=== PATIENT | male | born 1960 | race Caucasian/White ===

== ENCOUNTER 2018-12-20 16:11 | Inpatient (IN) | payer OTHER ==
[~2018-12-20] VITALS: Ht 172.7 cm; Wt 79.9 kg
[2018-12-20 16:15] VITALS: Ht 172.7 cm; Wt 79.9 kg
[2018-12-20 16:51] LABS: BASOPHIL % 0.5 % (0-2); PLATELET COUNT 255 x10^3mcL (130-400); RED CELL DISTRIBUTION WIDTH 13.3 % (11.5-14.5)
[2018-12-20 16:56] LABS: CALCIUM 8.9 mg/dL (8.5-10.1); CARBON DIOXIDE 26.9 mmol/L (21-32); CHLORIDE SERUM 101 mmol/L (98-107); CREATININE SERUM 0.9 mg/dL (0.7-1.3); GFR1 > 60 mL/min; GLUCOSE SERUM 141 mg/dL (74-106); POTASSIUM SERUM 4.1 mmol/L (3.5-5.1); SODIUM SERUM 139 mmol/L (136-145)
[2018-12-20 17:01] LABS: ALBUMIN 4.2 g/dL (3.4-5.0); ALKALINE PHOSPHATASE 100 U/L (46-116); ALT/SGPT 31 U/L (16-63); AST/SGOT 20 U/L (15-37); BILIRUBIN TOTAL 0.4 mg/dL (0.20-1.00); TOTAL PROTEIN, SERUM 7.9 g/dL (6.4-8.2)
[2018-12-20] MEDS ORDERED: ALBUTEROL0.63 MG/3 NEB (17:50)
[2018-12-20 18:49] VITALS: BP 167/93
[2018-12-20 21:14] VITALS: BP 140/75
[2018-12-20 21:19] VITALS: BP 140/75
[2018-12-21 05:05] VITALS: BP 121/66
[2018-12-21 06:36] LABS: PLATELET COUNT 258 x10^3mcL (130-400); RED CELL DISTRIBUTION WIDTH 12.9 % (11.5-14.5)
[2018-12-21 06:38] LABS: BASOPHIL % 0 % (0-2)
[2018-12-21 07:07] LABS: CALCIUM 9.6 mg/dL (8.5-10.1); CARBON DIOXIDE 24.8 mmol/L (21-32); CHLORIDE SERUM 103 mmol/L (98-107); CREATININE SERUM 0.8 mg/dL (0.7-1.3); GFR1 > 60 mL/min; GLUCOSE SERUM 152 mg/dL (74-106); SODIUM SERUM 137 mmol/L (136-145)
[2018-12-21 10:06] VITALS: BP 129/70
[2018-12-21 18:02] VITALS: BP 124/66
[2018-12-21 21:20] VITALS: BP 133/60
[2018-12-22 05:00] VITALS: BP 130/70
[2018-12-22 09:46] VITALS: BP 146/73
[2018-12-22 13:28] VITALS: BP 140/66
[2018-12-22 17:31] VITALS: BP 120/48
[2018-12-22 20:56] VITALS: BP 115/64
[2018-12-23 06:09] VITALS: BP 128/64
[2018-12-23 07:07] LABS: CALCIUM 8.9 mg/dL (8.5-10.1); CARBON DIOXIDE 29.4 mmol/L (21-32); CHLORIDE SERUM 104 mmol/L (98-107); CREATININE SERUM 0.8 mg/dL (0.7-1.3); GFR1 > 60 mL/min; GLUCOSE SERUM 128 mg/dL (74-106); POTASSIUM SERUM 4.3 mmol/L (3.5-5.1); SODIUM SERUM 141 mmol/L (136-145)
[2018-12-23 07:08] LABS: PLATELET COUNT 242 x10^3mcL (130-400); RED CELL DISTRIBUTION WIDTH 13.4 % (11.5-14.5)
[2018-12-23 07:34] VITALS: BP 132/73
[2018-12-23 10:33] VITALS: BP 132/73
[2018-12-23 10:43] LABS: BAND NEUTROPHIL 5 % (0-10); BASOPHIL 0 % (0-2); MONOCYTE 3 % (0-7); SEGMENTED NEUTROPHILS 87 % (37-75)
[2018-12-23 12:10] VITALS: BP 148/88
[2018-12-23 12:54] VITALS: BP 132/73
== END 2018-12-23 15:23 | disposition home or self-care (01) | DRG 140 ==
LOC: ED 16:11 → MU 17:23 → DU 20:51
PROVIDERS: Internal Medicine; ADMIT Internal Medicine
DX: J44.0 Chronic obstructive pulmonary disease with (acute) lower respiratory infection (principal); J96.01 Acute respiratory failure with hypoxia; J20.9 Acute bronchitis, unspecified; J45.901 Unspecified asthma with (acute) exacerbation; I25.10 Atherosclerotic heart disease of native coronary artery without angina pectoris; E66.9 Obesity, unspecified; I25.2 Old myocardial infarction; Z68.25 Body mass index [BMI] 25.0-25.9, adult
CPT/HCPCS: 36600; 83880; 94150; J1644; J1956; J2543; J2920; J2930; J3370; J7030; J7040; J7613; J7620; J7626; Q0092

== ENCOUNTER 2019-03-21 12:56 | Emergency (ER) | payer OTHER ==
[~2019-03-21] VITALS: Ht 167.6 cm; Wt 73.0 kg
[~2019-03-21 12:56] MED LIST: ALBUTEROL0.63 MG/3 NEB
[2019-03-21 13:04] VITALS: Ht 167.6 cm; Wt 73.0 kg
[2019-03-21 14:39] LABS: BASOPHIL % 0.5 % (0-2); PLATELET COUNT 252 x10^3mcL (130-400); RED CELL DISTRIBUTION WIDTH 13.4 % (11.5-14.5)
[2019-03-21 14:43] LABS: CARBON DIOXIDE 29.5 mmol/L (21-32); CHLORIDE SERUM 105 mmol/L (98-107); CREATININE SERUM 0.8 mg/dL (0.7-1.3); GFR1 > 60 mL/min; GLUCOSE SERUM 94 mg/dL (74-106); POTASSIUM SERUM 4.4 mmol/L (3.5-5.1); SODIUM SERUM 142 mmol/L (136-145)
[2019-03-21 14:48] LABS: ALBUMIN 3.8 g/dL (3.4-5.0); ALKALINE PHOSPHATASE 107 U/L (46-116); ALT/SGPT 25 U/L (16-63); AST/SGOT 15 U/L (15-37); BILIRUBIN TOTAL 0.3 mg/dL (0.20-1.00); HDL CHOLESTEROL 45 mg/dL (40-60); LIPASE 160 IU/L (73-393); TOTAL PROTEIN, SERUM 7.5 g/dL (6.4-8.2)
[2019-03-21 14:49] LABS: CHOLESTEROL 215 mg/dL (<200)
[2019-03-21 15:13] LABS: microscopic required? NO
[2019-03-21 15:30] LABS: UA SPECIFIC GRAVITY 1.025 (1.005-1.035); urine erythrocyte NEGATIVE (NEGATIVE)
[2019-03-21 15:37] LABS: AMPHETAMINE QUAL UR NONE DETECTED (See below)
[2019-03-21 16:23] VITALS: BP 126/72
== END 2019-03-21 16:23 | disposition home or self-care (01) ==
LOC: ED 12:56
PROVIDERS: Emergency Medicine
DX: J45.901 Unspecified asthma with (acute) exacerbation (principal)
CPT/HCPCS: 36415; 82962; 83880; J2930; J7613; J7644

== ENCOUNTER 2019-05-04 11:02 | Emergency (ER) | payer OTHER ==
[~2019-05-04] VITALS: Ht 167.6 cm; Wt 73.5 kg
[2019-05-04 11:07] VITALS: Ht 167.6 cm; Wt 73.5 kg
[2019-05-04 12:08] VITALS: BP 135/82
== END 2019-05-04 12:09 | disposition home or self-care (01) ==
LOC: ED 11:02
DX: J45.909 Unspecified asthma, uncomplicated (principal); R03.0 Elevated blood-pressure reading, without diagnosis of hypertension
CPT/HCPCS: J7512

== ENCOUNTER 2019-05-17 11:28 | Emergency (ER) | payer OTHER ==
[~2019-05-17] VITALS: Ht 167.6 cm; Wt 71.7 kg
[2019-05-17 11:55] VITALS: Ht 167.6 cm; Wt 71.7 kg
[2019-05-17 14:34] VITALS: BP 128/86
== END 2019-05-17 14:34 | disposition home or self-care (01) ==
LOC: ED 11:28
DX: S46.811A Strain of other muscles, fascia and tendons at shoulder and upper arm level, right arm, initial encounter (principal); M75.21 Bicipital tendinitis, right shoulder; J45.909 Unspecified asthma, uncomplicated; I25.2 Old myocardial infarction; X58.XXXA Exposure to other specified factors, initial encounter; Y93.89 Activity, other specified; Y92.89 Other specified places as the place of occurrence of the external cause; Y99.8 Other external cause status

== ENCOUNTER 2019-06-06 09:18 | Emergency (ER) | payer OTHER ==
[~2019-06-06] VITALS: Ht 167.6 cm; Wt 72.1 kg
[2019-06-06 09:20] VITALS: Ht 167.6 cm; Wt 72.1 kg
[2019-06-06 11:03] VITALS: BP 138/82
== END 2019-06-06 11:03 | disposition home or self-care (01) ==
LOC: ED 09:18
DX: J45.901 Unspecified asthma with (acute) exacerbation (principal); I10 Essential (primary) hypertension; J45.909 Unspecified asthma, uncomplicated; I25.2 Old myocardial infarction
CPT/HCPCS: J7620

== ENCOUNTER 2019-06-27 12:07 | Emergency (ER) | payer OTHER ==
[~2019-06-27] VITALS: Ht 170.2 cm; Wt 73.5 kg
[2019-06-27 12:28] VITALS: Ht 170.2 cm; Wt 73.5 kg
[2019-06-27 13:17] LABS: BASOPHIL % 0.3 % (0-2); PLATELET COUNT 206 x10^3mcL (130-400); RED CELL DISTRIBUTION WIDTH 13.3 % (11.5-14.5)
[2019-06-27 13:21] LABS: C REACTIVE PROTEIN 10.6 mg/dL (<=0.9); URIC ACID 5.2 mg/dL (3.5-7.2)
[2019-06-27 14:17] VITALS: BP 123/78
== END 2019-06-27 14:17 | disposition home or self-care (01) ==
LOC: ED 12:07
PROVIDERS: Emergency Medicine
DX: M13.841 Other specified arthritis, right hand (principal); I10 Essential (primary) hypertension; J45.909 Unspecified asthma, uncomplicated; X50.0XXA Overexertion from strenuous movement or load, initial encounter; Y93.89 Activity, other specified; Y92.89 Other specified places as the place of occurrence of the external cause; Y99.0 Civilian activity done for income or pay
CPT/HCPCS: 36415; J7512; Q0092

== ENCOUNTER 2019-07-27 09:29 | Inpatient (IN) | payer OTHER ==
[~2019-07-27] VITALS: Ht 165.1 cm; Wt 75.4 kg
[2019-07-27 09:40] VITALS: Ht 165.1 cm; Wt 75.4 kg
--- NOTE | 2019-07-27 10:40 | NUR ---
AT BEDSIDE FOR MSE
--- NOTE | 2019-07-27 10:43 | NUR ---
PT PRESENTS TO ED WITH C/O OF SOB OVER A COUPLE WEEKS. PT STS HE HAS HX OF ASTHMA AND USES AN INHALER AT HOME. AUDIBLE WHEEZING NOTED UPON PT INSPIRATION. PT WORK OF BREATHING APPEARS NORMAL. PT ALSO STS HE HAS MECHANICAL CHEST PAIN WHEN COUGHING. PT DENIES DIZZINESS, CHEST PAIN, OR SOB CURRENTLY. PT SITTING UP ON GURNEY IN POSITION OF COMFORT, AAOX4, RESP E/U, ON FULL CM, NO ACUTE DISTRESS NOTED AT THIS TIME, WILL CONTINUE TO MONITOR.
[2019-07-27 10:50] LABS: BASOPHIL % 0.3 % (0-2); PLATELET COUNT 241 x10^3mcL (130-400); RED CELL DISTRIBUTION WIDTH 14.2 % (11.5-14.5)
[2019-07-27 11:03] LABS: CALCIUM 8.8 mg/dL (8.5-10.1); CARBON DIOXIDE 27.5 mmol/L (21-32); CHLORIDE SERUM 104 mmol/L (98-107); CREATININE SERUM 1.2 mg/dL (0.7-1.3); GFR1 > 60 mL/min; GLUCOSE SERUM 99 mg/dL (74-106); POTASSIUM SERUM 4.2 mmol/L (3.5-5.1); SODIUM SERUM 142 mmol/L (136-145)
[2019-07-27 11:06] LABS: ALKALINE PHOSPHATASE 97 U/L (46-116); ALT/SGPT 31 U/L (16-63); AST/SGOT 19 U/L (15-37); BILIRUBIN TOTAL 0.38 mg/dL (0.20-1.00); TOTAL PROTEIN, SERUM 7.8 g/dL (6.4-8.2)
--- NOTE | 2019-07-27 12:27 | NUR ---
PT MEDICATED ORDERED (SEE EMAR FOR DETAILS), NO ADVERSE REACTIONS NOTED.
--- NOTE | 2019-07-27 13:17 | NUR ---
PT REPORTS HE IS ABLE TO BREATH MORE EASILY. PT AAOX4, RESP E/U, NO ACUTE DISTRESS NOTED AT THIS TIME.
[2019-07-27] MEDS ORDERED: PREDNISONE1 MG (13:20)
[2019-07-27] MEDS ORDERED: TRAMADOL HCL50 MG (13:20)
[2019-07-27] MEDS ORDERED: ALBUTEROL0.63 MG/3 (13:20)
--- NOTE | 2019-07-27 13:58 | NUR ---
REPORT GIVEN TO MAIK MCGUIRE ON TELE UNIT TO ASSUME CARE OF PT.
[2019-07-27 14:11] LABS: CHOLESTEROL/HDL RATIO 3.7
[2019-07-27 14:15] LABS: T3 TOTAL 1.71 ng/mL
[2019-07-27 14:24] LABS: FREE T4 1.27 ng/dL (0.76-1.46); FREE THYROXINE INDEX 3.6 ug/dL (1.4-4.5); T4(THYROXINE) 10.6 ug/dL (4.7-13.3)
[2019-07-27 15:12] VITALS: BP 138/93
--- NOTE | 2019-07-27 15:15 | NUR ---
RECEIVED PT FROM ED VIA RUBEN. ORIENTED PT TO ROOM AND SURROUNDINGS. IV NOTED TO RAC PATENT AND INTACT. INSTRUCTED PT ON THE USE OF CALL LIGHT FOR ASSISTANCE. ENDORSED PT TO PRIMARY NURSE MAYNOR
--- NOTE | 2019-07-27 17:01 | NUR ---
PATIENT SEATED IN BED WITH NO COMPLAINTS OF SOB OR PAIN. INSTRUCTED PATIENT TO CALL FOR HELP IF NEEDED. CALL LIGHT IN REACH.
[2019-07-27 18:46] LABS: microscopic required? NO
--- NOTE | 2019-07-27 18:47 | NUR ---
PATIENT SEATED IN BED, RESTING WITH NO S/S OF SOB. PATIENT DENIES PAIN. WILL ENDORSE TO ONCOMING SHIFT. UA COLLECTED AND SENT TO LAB. CALL LIGHT IN REACH, ON 2LPM IN.
[2019-07-27 18:51] LABS: urine erythrocyte NEGATIVE (NEGATIVE)
--- NOTE | 2019-07-27 19:05 | NUR ---
RECEIVED PT LAYING IN BED, ACTIVELY USING I.S. BREATHING ON 2L NC, EVEN AND UNLABORED, EXPIRATORY WHEEZES NOTED KATERIN. PT ADMITS TO SOB WITH EXERTION, PRODUCTIVE COUGH NOTED, YELLOW SPUTUM. AA/OX4, ABLE TO MAKE NEEDS KNOWN, SPEECH CLEAR AND APPROPRIATE. NSR TO TELE #21, HR 93, NO CP. PULSES PRESENT AND EQUAL THROUGHOUT, NO EDEMA. ABD ROUND AND SOFT WITH ACTIVE BOWEL SOUNDS, NO N/V/D. FREELY VOIDS URINE WITH BRP. AMBULATORY AND ABLE TO REPOSITION SELF IN BED. IV TO RAC IN PLACE, DRY, PATENT, INTACT, AND INFUSING IVF WELL, NO S&S PHLEBITIS NOTED. COMFORT AND SAFETY MEASURES IN PLACE. ALL NEEDS ASSESSED AND ATTENDED TO. CALL WITHIN REACH. WILL CONTINUE TO MONITOR
[2019-07-27 19:17] LABS: AMPHETAMINE QUAL UR NONE DETECTED (See below)
[2019-07-27 20:19] VITALS: BP 135/70
--- NOTE | 2019-07-28 05:26 | NUR ---
BREATHING TREATMENTS DUE ON 07/27 WERE NOT GIVEN BECAUSE ORDER FOR HHN OR RT PROTOCOL WAS NOT ENTERED WHEN RESPIRATORY MEDS WERE ORDERED. PAGED RESIDENTS TO ENTER ORDER FOR HHN.
[2019-07-28 05:44] VITALS: BP 136/77
[2019-07-28 05:45] VITALS: BP 135/70
--- NOTE | 2019-07-28 05:45 | NUR ---
NO SIGNIFICANT CHANGES TO REPORT, PT COMPLIED WITH NURSING CARE THROUGHOUT THE SHIFT WITH NO ACUTE EVENTS OVERNIGHT. PT LAYING IN BED, BREATHING EVEN AND UNLABORED, NO ACUTE DISTRESS OBSERVED AT THIS TIME. COMFORT AND SAFETY MEASURES MAINTAINED. ALL NEEDS ASSESSED AND ATTENDED TO. CALL LIGHT WITHIN REACH. WILL CONTINUE TO MONITOR AND ENDORSE CARE TO DAY SHIFT NURSE
--- NOTE | 2019-07-28 07:05 | NUR ---
RECIEVED PT SITTING UP IN BED WITH NO C/O PAIN, DISTRESS, OR SOB. A/O X4 WITH NO VAZQUEZ OR DIZZINESS. TELE #21 CONNECTED TO PT. DENIES CP OR PRESSURE. NS RUNNING AT 70ML/HR IN RAC, INTACT AMD PATENT WITH NO REDNESS OR INFLAMMATION. SAFETY PRECAUTIONS IN PLACE, CALL LIGHT WITHIN REACH, WILL MONITOR.
[2019-07-28 07:20] LABS: PLATELET COUNT 231 x10^3mcL (130-400); RED CELL DISTRIBUTION WIDTH 14.1 % (11.5-14.5)
[2019-07-28 07:48] LABS: BASOPHIL % 0 % (0-2)
[2019-07-28 07:55] LABS: CALCIUM 8.7 mg/dL (8.5-10.1); CARBON DIOXIDE 21.9 mmol/L (21-32); CHLORIDE SERUM 104 mmol/L (98-107); CREATININE SERUM 0.8 mg/dL (0.7-1.3); GFR1 > 60 mL/min; GLUCOSE SERUM 122 mg/dL (74-106); MAGNESIUM 2.5 mg/dL (1.8-2.4); PHOSPHOROUS 3.5 mg/dL (2.5-4.9); POTASSIUM SERUM 4.5 mmol/L (3.5-5.1); SODIUM SERUM 141 mmol/L (136-145)
[2019-07-28 08:45] VITALS: BP 138/64
--- NOTE | 2019-07-28 11:00 | NUR ---
PT WATCHING TV IN BED AT THIS TIME. DENIES ANY DISTRESS OR SOB. SAFETY PRECAUTIONS IN PLACE, CALL LIGHT WITHIN REACH, WILL CONT TO MONITOR.
[2019-07-28 13:37] VITALS: BP 143/74
--- NOTE | 2019-07-28 14:02 | NUR ---
HHN, TX HELD, PT GETTING ECHO PERFORMED. WILL CHECK BACK LATER.
--- NOTE | 2019-07-28 15:09 | NUR ---
PT RESTING COMFORTABLY IN BED, REPORTS NO DISTRESS OR SOB AT THIS TIME. SAFETY PRECAUTINS IN PLACE, CALL LIGHT WITHIN REACH, WILL MONITOR.
[2019-07-28 17:49] VITALS: BP 132/75
--- NOTE | 2019-07-28 18:13 | NUR ---
PT STABLE WITH NO C/O PAIN, DISTRESS, OR SOB. ALL CARES TOLERATED WELL. VS WBL. IV INTACT AND PATENT RUNNING NS AT 70ML/HR NO REDNESS OR INFLAMMATION NOTED. DENIES ANY CP OR PRESSURE AT THIS TIME. SAFETY PRECAUTIONS IN PLACE, CALL LIGHT WITHIN REACH, WILL ENDORSE TO CHEMICAL LABORATORY ASSISTANT.
--- NOTE | 2019-07-28 19:45 | NUR ---
RECEIVED PT FROM DAY SHIFT RN. PT IS ALERT AND ORIENTED TO PERSON PLACE TIME AND SITUATION. PRIMARILY ITALIAN SPEAKING BUT IS ABLE TO FOLLOW COMMANDS AND MAKE NEEDS KNOWN. PT DENIES SHORTNESS OF BREATH AT THIS TIME. BREATHING IS EVEN AND UNLABORED. CURRENTLY ON 2L NASAL CANULA. PT IS AMBULATORY WITHOUT ASSIST. NS RUNNING AT 70ML/HR THROUGH THE RAC. PT TOLERATING WELL. SAFETY MEASURES ARE IN PLACE. BED IS IN THE LOWEST POSITION. CALL LIGHT IS WITHIN REACH. WILL CONTINUE TO MONITOR PT.
[2019-07-28 20:01] VITALS: BP 134/78
--- NOTE | 2019-07-29 01:37 | NUR ---
PT RESTING IN BED AT THIS TIME. NO USE OF ACCESSORY MUSCLES OR LABORED BREATHING. PT DOES NOT APPEAR TO BE IN ANY DISTRESS AT THIS TIME. WILL CONTINUE TO MONITOR.
[2019-07-29 05:21] VITALS: BP 123/77
--- NOTE | 2019-07-29 06:29 | NUR ---
PT DENIES SOB AT THIS TIME. NO RESPIRATORY DISTRESS NOTED ON 1L NASAL CANULA. NO SIGNIFICANT CHANGES NOTED THROUGHOUT THE NIGHT. SAFETY MEASURES ARE IN PLACE. BED IN THE LOWEST POSITION. CALL LIGHT WITHIN REACH, WILL ENDORSE TO DAY SHIFT RN.
[2019-07-29 07:11] LABS: PLATELET COUNT 222 x10^3mcL (130-400); RED CELL DISTRIBUTION WIDTH 13.6 % (11.5-14.5)
[2019-07-29 07:14] LABS: BASOPHIL % 0 % (0-2)
[2019-07-29 07:18] LABS: CALCIUM 8.8 mg/dL (8.5-10.1); CHLORIDE SERUM 106 mmol/L (98-107); CREATININE SERUM 0.7 mg/dL (0.7-1.3); GFR1 > 60 mL/min; GLUCOSE SERUM 121 mg/dL (74-106); MAGNESIUM 2.3 mg/dL (1.8-2.4); PHOSPHOROUS 3.9 mg/dL (2.5-4.9); POTASSIUM SERUM 4.2 mmol/L (3.5-5.1); SODIUM SERUM 142 mmol/L (136-145)
--- NOTE | 2019-07-29 07:20 | NUR ---
RECIEVED PT RESTING IN BED WITH NO C/O PAIN, DISTRESS, OR SOB. A/O X4 WITH NO VAZQUEZ OR DIZZINESS. PT ON 1 LPM O2 NC. NS RUNNING AT 70ML/HR, IV INTACT AND PATENT WITH NO REDNESS OR INFLAMMATION. SAFETY PRECAUTIONS IN PLACE, CALL LIGHT WITHIN REACH, WILL MONITOR.
[2019-07-29 08:13] VITALS: BP 137/76
--- NOTE | 2019-07-29 10:05 | NUR ---
RECEIVED ORDER BY DR. WIGGINS TO CHANGE SOLUMEDROL BACK TO 60MG Q8HRS PREVIOUSLY ORDERED, AND TO ADD ALBUTEROL 2.5MG VIA HHN Q2P PRN WORSENING SOB. ATTENDING NURSE AWARE.
--- NOTE | 2019-07-29 10:08 | NUR ---
DR WIGGINS AT BEDSIDE DISCUSSING POC WITH PT. NEW ORDERS PUT IN BY CHARGE, WILL CARRY OUT. NOTIFIED DR WIGGINS ABOUT PT WBC GOING FROM 12.7 TO 17.3 IN ONE DAY, HE STATED, "ITS FROM THE SOLUMEDROL". WILL CONTINUE TO MONITOR PT.
--- NOTE | 2019-07-29 14:20 | NUR ---
PT RESTING COMFORTABLY IN BED WITH NO C/O PAIN, DISTRESS, OR SOB. SAFETY PRECAUTIONS IN PLACE, CALL LIGHT WITHIN REACH, WILL CONTINUE TO MONITOR.
[2019-07-29 17:05] VITALS: BP 128/86
[2019-07-29 17:09] VITALS: BP 125/74
--- NOTE | 2019-07-29 17:10 | NUR ---
NEW IV STARTED IN RAC 22G, OLD OVE REMOVED WITH CATHETER INTACT. NO REDNESS OR INFLAMMATION NOTED TO SITES.
--- NOTE | 2019-07-29 18:13 | NUR ---
PT STABLE AT THIS TIME WITH NO C/O PAIN OR SOB. PT ON 1 LPM O2 NC. IV INTACT AND PATENT ON RAC 22GUAGE. NO REDNESS OR INFLAMMATION NOTED. SAFETY PRECAUTIONS IN PLACE, CALL LIGHT WITHIN REACH, WILL ENDORSE TO [employer]ROLE[employer] SUPPLY SPECIALIST.
--- NOTE | 2019-07-29 19:05 | NUR ---
REPORT RECEIVED DAY SHIFT RN. PATIENT WAS SEEN AND IS RESTING COMFORTABLY IN BED. NO DISTRESS NOTED. BREATHING EVEN AND UNLABORED ON 2L NC. NO SOB OR RESP DISTRESS NOTED. NO C/O PAIN. DENIES CHEST PAIN. IV TO THE RAC. SALINE LOCK. PATENT AND INTACT. NO REDNESS OR SWELLING NOTED. INSPIRATORY AND EXPIRATORY WHEEZES HEARD BUL/BLL. COMFORT AND SAFETY MEASURES IN PLACE. CALL LIGHT IS WITHIN REACH. BED IS LOCKED AND IN THE LOWEST POSITION. SIDE RAILS UP X2. WILL CONTINUE TO MONITOR.
[2019-07-29 20:42] VITALS: BP 134/64
--- NOTE | 2019-07-29 22:15 | NUR ---
GAVE PATIENT SANDWICH, PUDDING, AND SPRITE PER REQUEST.
--- NOTE | 2019-07-30 01:10 | NUR ---
RESTING IN BED WITH EYES CLOSED. NO DISTRESS NOTED. BREATHING EVEN AND UNLABORED ON 2L NC. NO S/S OF PAIN NOTED. SAFETY MEASURES IN PLACE. CALL LIGHT IS WITHIN REACH. WILL CONTINUE TO MONITOR.
[2019-07-30 05:13] VITALS: BP 130/74
--- NOTE | 2019-07-30 06:00 | NUR ---
RESTED IN LONG INTERVALS THROUGHOUT THE NIGHT. NO ACUTE CHANGES NOTED. BREATHING EVEN AND UNLABORED ON 2L NC. INSP AND EXP WHEEZES HEARD BILATERALLY. DENIES SOB. DENIES CHEST PAIN/PRESSURE. NO C/O PAIN. IV TO THE RFA. SALINE LOCK. PATENT AND INTACT. NO REDNESS OR SWELLING NOTED. SAFETY MEASURES IN PLACE. CALL LIGHT IS WITHIN REACH. ALL NEEDS AND CONCERNS ADDRESSED. WILL CONTINUE TO MONITOR AND ENDORSE CARE TO DAY SHIFT RN.
--- NOTE | 2019-07-30 07:05 | NUR ---
RECEIVED BEDSIDE REPORT. PATIENT RESTING IN BED COMFORTABLY A/O X4, NO NEURO DEFICITS NOTED. DENIES CHEST PAIN. BREATHING EVEN AND UNLABBORED ON O2 2 L/MIN VIA NC, O2 SAT 96%, DENIES SOB, HOB ELEVATED, ON RT PROTOCOL. ENCOURAGED PATIENT TO CONTINUE USING INCENTIVE SPIROMETER X10 EVERY HOUR WHILE AWAKE, PATIENT VERBALIZED UNDERSTANDING. PATIENT DENIES ANY PAIN. IV TO RFA H/L INTACT AND PATENT, DENIES ANY PAIN. INSTRUCTED PATIENT TO CALL FOR ASSISTANCE IF NEEDED. SAFETY PRECAUTIONS MAINTAINED. WILL MONITOR.
[2019-07-30 07:50] LABS: BASOPHIL % 0.3 % (0-2); PLATELET COUNT 216 x10^3mcL (130-400); RED CELL DISTRIBUTION WIDTH 13.6 % (11.5-14.5)
[2019-07-30 08:54] VITALS: BP 139/73
--- NOTE | 2019-07-30 09:40 | NUR ---
PATIENT SEEN SITTING UP IN BED WITH HOB ELEVATED WATCHING TELEVISION, NO DISTRESS NOTED, BREATHING EVEN AND UNLABBORED ON ROOM AIR, O2 SAT 95%. ALL NEEDS ATTENDED TO, SAFETY PRECAUTIONS MAINTAINED. WILL MONITOR.
--- NOTE | 2019-07-30 11:35 | NUR ---
PATIENT RESTING IN BED COMFORTABLY WITH EYES CLOSED, BREATHING EVEN AND UNLABBORED ON ROOM AIR, NO DISTRESS NOTED. SAFETY PRECAUTIONS MAINTAINED. WILL MONITOR.
--- NOTE | 2019-07-30 13:50 | NUR ---
PATIENT SITTING UP IN BED WATCHING TELEVISION COMFORTABLY, BREATHING EVEN AND UNLABBORED, NO DISTRESS NOTED. DUE MEDICATION GIVEN, ALL NEEDS ATTENDED TO, SAFETY PRECAUTIONS MAINTAINED. WILL MONITOR.
--- NOTE | 2019-07-30 16:35 | NUR ---
RT AT BEDSIDE FOR BREATHING TREATMENT.
[2019-07-30 17:09] VITALS: BP 136/71
--- NOTE | 2019-07-30 17:47 | NUR ---
PATIENT SITTING UP IN CHAIR AT BEDSIDE EATING DINNER, TOLERATING WELL NO DISTRESS NOTED. ALL NEEDS ATTENDED TO, SAFETY PRECAUTIONS MAINTAINED. WILL MONITOR.
--- NOTE | 2019-07-30 19:20 | NUR ---
REPORT GIVEN TO ESTELA PLEITEZ, ALL QUESTIONS AND CONCERNS ADDRESSED, ALL CARES ENDORSED.
--- NOTE | 2019-07-30 19:35 | NUR ---
RECEIVED PATIENT IN BED AWAKE, ALERT AND ORIENTED WITH NO C/O RESPIRATORY DISTRESS, BREATHING EASY AND NONLABOR ON O2 AT 2L VIA NC. ABDOMEN ROUND SOFT AND NON TENDER WITH ACTIVE BS. IV TO RFA [place], FLUSHED WITH NS. WILL CONTINUE TO MONITOR. CALL LIGHT WITHIN REACH.
[2019-07-30 21:09] VITALS: BP 143/77
--- NOTE | 2019-07-31 01:27 | NUR ---
APPEAR TO BE SLEEPING THIS TIME, NO INDICATION OF CHEST DISCOMFORT NOTED. WILL CONTINUE TO MONITOR.
--- NOTE | 2019-07-31 05:10 | NUR ---
SLEPT AT LONG INTERVALS, DENIES CHEST DISCOMFORT THE ENTIRE SHIFT. ALL NEEDS ATTENDED.
[2019-07-31 05:22] VITALS: BP 131/80
[2019-07-31 06:24] LABS: CALCIUM 8.9 mg/dL (8.5-10.1); CARBON DIOXIDE 29.9 mmol/L (21-32); CHLORIDE SERUM 103 mmol/L (98-107); CREATININE SERUM 0.9 mg/dL (0.7-1.3); GFR1 > 60 mL/min; GLUCOSE SERUM 119 mg/dL (74-106); POTASSIUM SERUM 4.2 mmol/L (3.5-5.1); SODIUM SERUM 141 mmol/L (136-145)
[2019-07-31 07:29] LABS: BASOPHIL % 0 % (0-2); PLATELET COUNT 234 x10^3mcL (130-400); RED CELL DISTRIBUTION WIDTH 13.7 % (11.5-14.5)
--- NOTE | 2019-07-31 07:43 | NUR ---
HANDOFF REPORT FROM RN SCOTT RECEIVED. PATIENT AWAKE IN BED AND NOT IN ANY DISTRESS. STATED " I AM BREATHING OKAY". INSTRUCTED TO CALL RN FOR ANY NEED. CALL ELIZONDO WITHIN REACH.
[2019-07-31 08:55] VITALS: BP 137/78
[2019-07-31 11:37] VITALS: BP 137/78
--- NOTE | 2019-07-31 12:00 | NUR ---
FOR DISCHARGE. PATIENT AWARE. STATED HE NEEDS TO WAIT FOR DAUGHTER COMING FROM [place] ARRIVING AROUND 5-6PM BEFORE HE COULD BE DISCHARGED.
--- NOTE | 2019-07-31 14:03 | NUR ---
RESTING IN BED. DENIES ANY SOB. NOT IN ANY DISTRESS. CALL ELIZONDO WITHIN REACH.
--- NOTE | 2019-07-31 14:42 | NUR ---
DISCHARGE INSTRUCTIONS GIVEN. ASKED PERTINENT QUESTIONS. DISCHARGE PACKET PROVIDED. AWAITING FOR HIS DAUGHTER.
--- NOTE | 2019-07-31 16:13 | NUR ---
NOT IN ANY DISTRESS. WATCHING TV AT THIS TIME. CALL ELIZONDO WITHIN REACH.
--- NOTE | 2019-07-31 17:39 | NUR ---
HAVING DINNER. NO COMPLAINTS OF DYSPNEA. STATED DAUGHTER SHOULD BE HERE IN AN HOUR.
[2019-07-31 17:46] VITALS: BP 147/96
--- NOTE | 2019-07-31 18:28 | NUR ---
ESCORTED OFF THE FLOOR TO LOBBY. NOT IN ANY DISTRESS. DISCHARGED.
== END 2019-07-31 18:28 | disposition home or self-care (01) | DRG 133 ==
LOC: ED 09:29 → DU 13:05 → MU 07-28 15:24
PROVIDERS: Internal Medicine; ADMIT Internal Medicine
DX: J96.01 Acute respiratory failure with hypoxia (principal); J45.901 Unspecified asthma with (acute) exacerbation; I10 Essential (primary) hypertension; I25.10 Atherosclerotic heart disease of native coronary artery without angina pectoris; I25.2 Old myocardial infarction; Z68.26 Body mass index [BMI] 26.0-26.9, adult; Z91.14 Patient's other noncompliance with medication regimen
CPT/HCPCS: 36600; 84439; 94150; G0378; J0171; J2920; J3475; J7030; J7512; J7613; J7620; J7626; J7644

== ENCOUNTER 2019-09-16 18:35 | Emergency (ER) | payer OTHER ==
[~2019-09-16] VITALS: Ht 167.6 cm; Wt 75.7 kg
[~2019-09-16 18:35] MED LIST changes: +ALBUTEROL0.63 MG/3; +PREDNISONE1 MG; +TRAMADOL HCL50 MG
[2019-09-16 18:38] VITALS: Ht 167.6 cm; Wt 75.7 kg
[2019-09-16 19:42] LABS: CALCIUM 8.7 mg/dL (8.5-10.1); CARBON DIOXIDE 28.3 mmol/L (21-32); CHLORIDE SERUM 106 mmol/L (98-107); CREATININE SERUM 0.8 mg/dL (0.7-1.3); GFR1 > 60 mL/min; GLUCOSE SERUM 109 mg/dL (74-106); POTASSIUM SERUM 3.6 mmol/L (3.5-5.1); SODIUM SERUM 141 mmol/L (136-145)
[2019-09-16 19:48] LABS: ALBUMIN 3.6 g/dL (3.4-5.0); ALKALINE PHOSPHATASE 102 U/L (46-116); ALT/SGPT 20 U/L (16-63); AST/SGOT 15 U/L (15-37); BILIRUBIN TOTAL 0.25 mg/dL (0.20-1.00); CHOLESTEROL 160 mg/dL (<200); HDL CHOLESTEROL 34 mg/dL (40-60); TOTAL PROTEIN, SERUM 6.7 g/dL (6.4-8.2)
[2019-09-16 19:56] LABS: BASOPHIL % 1.3 % (0-2); PLATELET COUNT 197 x10^3mcL (130-400); RED CELL DISTRIBUTION WIDTH 13.6 % (11.5-14.5)
[2019-09-16 20:46] VITALS: BP 115/63
== END 2019-09-16 20:46 | disposition home or self-care (01) ==
LOC: ED 18:35
PROVIDERS: Emergency Medicine
DX: R06.00 Dyspnea, unspecified (principal); J45.901 Unspecified asthma with (acute) exacerbation; I10 Essential (primary) hypertension
CPT/HCPCS: J2930; J7030; J7613; J7644; Q0092

== ENCOUNTER 2019-10-21 01:50 | Emergency (ER) | payer OTHER ==
[~2019-10-21] VITALS: Ht 167.6 cm; Wt 75.7 kg
[2019-10-21 01:56] VITALS: Ht 167.6 cm; Wt 75.7 kg
[2019-10-21 04:33] VITALS: BP 145/84
== END 2019-10-21 04:33 | disposition home or self-care (01) ==
LOC: ED 01:50
DX: J45.901 Unspecified asthma with (acute) exacerbation (principal); I10 Essential (primary) hypertension
CPT/HCPCS: J7613; J7644

== ENCOUNTER 2019-12-13 14:00 | Emergency (ER) | payer OTHER ==
[~2019-12-13] VITALS: Ht 167.6 cm; Wt 77.1 kg
[2019-12-13 14:14] VITALS: Ht 167.6 cm; Wt 77.1 kg
[2019-12-13 17:01] VITALS: BP 127/78
== END 2019-12-13 18:06 | disposition home or self-care (01) ==
LOC: ED 14:00
DX: J45.901 Unspecified asthma with (acute) exacerbation (principal); I10 Essential (primary) hypertension
CPT/HCPCS: J7512; J7613; J7644

== ENCOUNTER 2020-01-06 16:39 | Inpatient (IN) | payer OTHER ==
[~2020-01-06] VITALS: Ht 160 cm; Wt 77.1 kg
[2020-01-06 20:17] LABS: BASOPHIL % 0.8 % (0-2); PLATELET COUNT 208 x10^3mcL (130-400); RED CELL DISTRIBUTION WIDTH 13.8 % (11.5-14.5)
[2020-01-06 20:45] VITALS: BP 122/66
[2020-01-06 20:47] VITALS: Ht 160 cm; Wt 77.1 kg
[2020-01-06 20:57] LABS: ALBUMIN 3.6 g/dL (3.4-5.0); ALKALINE PHOSPHATASE 83 U/L (46-116); ALT/SGPT 30 U/L (16-63); AST/SGOT 23 U/L (15-37); BILIRUBIN TOTAL 0.3 mg/dL (0.20-1.00); CALCIUM 8.6 mg/dL (8.5-10.1); CARBON DIOXIDE 27.4 mmol/L (21-32); CHLORIDE SERUM 104 mmol/L (98-107); CREATININE SERUM 0.8 mg/dL (0.7-1.3); GFR1 > 60 mL/min; GLUCOSE SERUM 112 mg/dL (74-106); POTASSIUM SERUM 3.9 mmol/L (3.5-5.1); SODIUM SERUM 142 mmol/L (136-145); TOTAL PROTEIN, SERUM 6.8 g/dL (6.4-8.2)
[2020-01-07 00:28] VITALS: BP 122/66
[2020-01-07 05:40] VITALS: BP 115/65
[2020-01-07 05:57] VITALS: BP 111/63
[2020-01-07 06:05] LABS: BASOPHIL % 0.4 % (0-2); PLATELET COUNT 199 x10^3mcL (130-400); RED CELL DISTRIBUTION WIDTH 13.1 % (11.5-14.5)
[2020-01-07 06:49] LABS: CALCIUM 8.4 mg/dL (8.5-10.1); CARBON DIOXIDE 25.9 mmol/L (21-32); CHLORIDE SERUM 105 mmol/L (98-107); CREATININE SERUM 0.7 mg/dL (0.7-1.3); GFR1 > 60 mL/min; GLUCOSE SERUM 145 mg/dL (74-106); POTASSIUM SERUM 4.4 mmol/L (3.5-5.1); SODIUM SERUM 141 mmol/L (136-145)
[2020-01-07 08:16] VITALS: BP 125/69
[2020-01-07 11:38] VITALS: BP 125/69
== END 2020-01-07 15:21 | disposition home or self-care (01) | DRG 133 ==
LOC: ED 16:39 → DU 19:47
PROVIDERS: Specialist; ADMIT Internal Medicine
DX: J96.91 Respiratory failure, unspecified with hypoxia (principal); J45.901 Unspecified asthma with (acute) exacerbation; I10 Essential (primary) hypertension; I25.2 Old myocardial infarction
CPT/HCPCS: 87804; G0378; J0171; J0456; J2920; J2930; J3105; J3475; J7030; J7040; J7613; J7620; J7644; Q0092

== ENCOUNTER 2020-02-03 15:14 | Emergency (ER) | payer OTHER ==
[~2020-02-03] VITALS: Ht 167.6 cm; Wt 77.6 kg
[2020-02-03 15:21] VITALS: Ht 167.6 cm; Wt 77.6 kg
[2020-02-03 17:31] VITALS: BP 140/88
== END 2020-02-03 17:31 | disposition home or self-care (01) ==
LOC: ED 15:14
DX: J45.901 Unspecified asthma with (acute) exacerbation (principal); I10 Essential (primary) hypertension
CPT/HCPCS: J1100; J7613

== ENCOUNTER 2020-03-01 16:30 | Emergency (ER) | payer OTHER ==
[~2020-03-01] VITALS: Ht 167.6 cm; Wt 77.1 kg
[2020-03-01 16:35] VITALS: Ht 167.6 cm; Wt 77.1 kg
[2020-03-01 17:31] VITALS: BP 121/71
== END 2020-03-01 17:31 | disposition home or self-care (01) ==
LOC: ED 16:30
DX: J45.901 Unspecified asthma with (acute) exacerbation (principal); Z76.0 Encounter for issue of repeat prescription; I10 Essential (primary) hypertension; I25.2 Old myocardial infarction

== ENCOUNTER 2020-10-18 06:22 | Emergency (ER) | payer OTHER ==
[~2020-10-18] VITALS: Ht 165.1 cm; Wt 75.3 kg
[2020-10-18 06:30] VITALS: Ht 165.1 cm; Wt 75.3 kg
[2020-10-18 08:06] VITALS: BP 134/87
== END 2020-10-18 08:06 | disposition home or self-care (01) ==
LOC: ED 06:22
DX: J45.901 Unspecified asthma with (acute) exacerbation (principal); I10 Essential (primary) hypertension
CPT/HCPCS: J7512

== ENCOUNTER 2020-11-07 08:11 | Emergency (ER) | payer OTHER, SELFPAY ==
[~2020-11-07] VITALS: Ht 157.5 cm; Wt 77.1 kg
[2020-11-07 08:20] VITALS: BP 138/68; Ht 157.5 cm; Wt 77.1 kg
== END 2020-11-07 09:08 | disposition home or self-care (01) ==
LOC: ED 08:11
DX: J45.901 Unspecified asthma with (acute) exacerbation (principal); I10 Essential (primary) hypertension; I25.2 Old myocardial infarction; Z76.0 Encounter for issue of repeat prescription
CPT/HCPCS: J7512

== ENCOUNTER 2020-11-26 12:32 | Emergency (ER) | payer OTHER ==
[~2020-11-26] VITALS: Ht 167.6 cm; Wt 78.0 kg
[2020-11-26 13:00] VITALS: BP 142/98; Ht 167.6 cm; Wt 78.0 kg
== END 2020-11-26 13:39 | disposition home or self-care (01) ==
LOC: ED 12:32
DX: J45.909 Unspecified asthma, uncomplicated (principal); Z76.0 Encounter for issue of repeat prescription; I10 Essential (primary) hypertension

== ENCOUNTER 2020-12-09 15:11 | Emergency (ER) | payer OTHER ==
[~2020-12-09] VITALS: Ht 160 cm; Wt 75.7 kg
[2020-12-09 15:26] VITALS: BP 140/78; Ht 160 cm; Wt 75.7 kg
== END 2020-12-09 16:25 | disposition home or self-care (01) ==
LOC: ED 15:11
DX: R06.02 Shortness of breath (principal); Z76.0 Encounter for issue of repeat prescription

== ENCOUNTER 2020-12-22 16:50 | Emergency (ER) | payer OTHER, SELFPAY ==
[~2020-12-22] VITALS: Ht 165.1 cm; Wt 74.8 kg
[2020-12-22 16:51] VITALS: BP 150/88; Ht 165.1 cm; Wt 74.8 kg
== END 2020-12-22 17:29 | disposition home or self-care (01) ==
LOC: ED 16:50
DX: J45.901 Unspecified asthma with (acute) exacerbation (principal); I10 Essential (primary) hypertension; Z76.0 Encounter for issue of repeat prescription; Z86.73 Personal history of transient ischemic attack (TIA), and cerebral infarction without residual deficits

== ENCOUNTER 2021-01-10 09:41 | Emergency (ER) | payer OTHER ==
[~2021-01-10] VITALS: Ht 165.1 cm; Wt 74.4 kg
[2021-01-10 09:46] VITALS: BP 126/75; Ht 165.1 cm; Wt 74.4 kg
== END 2021-01-10 10:35 | disposition home or self-care (01) ==
LOC: ED 09:41
DX: J45.901 Unspecified asthma with (acute) exacerbation (principal); I10 Essential (primary) hypertension

== ENCOUNTER 2021-01-11 16:45 | Emergency (ER) | payer OTHER ==
[~2021-01-11] VITALS: Ht 170.2 cm; Wt 73.5 kg
[2021-01-11 17:01] VITALS: Ht 170.2 cm; Wt 73.5 kg
[2021-01-11 18:11] VITALS: BP 130/78
== END 2021-01-11 18:11 | disposition home or self-care (01) ==
LOC: ED 16:45
DX: J44.9 Chronic obstructive pulmonary disease, unspecified (principal); I10 Essential (primary) hypertension

== ENCOUNTER 2021-02-03 15:40 | Emergency (ER) | payer OTHER ==
[~2021-02-03] VITALS: Ht 167.6 cm; Wt 73.9 kg
[2021-02-03 16:01] VITALS: BP 137/70; Ht 167.6 cm; Wt 73.9 kg
[2021-02-03] MEDS ORDERED: PROAIR HFA8.5 GM INH (17:19)
[2021-02-03] MEDS ORDERED: ALBUD HHN (17:19)
[2021-02-03] MEDS ORDERED: PRE20 PO (17:19)
== END 2021-02-03 19:33 | disposition home or self-care (01) ==
LOC: ED 15:40
DX: J45.909 Unspecified asthma, uncomplicated (principal); Z76.0 Encounter for issue of repeat prescription